=== PATIENT | female | born 1990 | race African-American/Black ===

== ENCOUNTER 2017-02-14 14:55 | Emergency (ER) | payer SELFPAY ==
[~2017-02-14] VITALS: Ht 154.9 cm; Wt 90.0 kg
[2017-02-14 14:56] VITALS: BP 149/67; PULSE 83; RESP 16; TEMP 98.5; O2SAT 97
[2017-02-14] MEDS ORDERED: TRICTAB PO (15:29)
[2017-02-14] MEDS ORDERED: METF500T PO (15:29)
[2017-02-14] MEDS ORDERED: SODIUM CHLOR 0.9% 1000 ML INJ 1,000 ML IV SCH (15:39)
[2017-02-14] MEDS ORDERED: ONDANSETRON HCL 4 MG/2 ML VIAL IVP ONE (15:45)
[2017-02-14] MEDS ORDERED: SODIUM CHLORIDE 0.9% FLUSH 10 ML FLUSH IV FLUSH PRN (15:45)
[2017-02-14 15:50] VITALS: RESP 16; O2SAT 98
[2017-02-14 16:21] LABS: AUTOMATED NEUTROPHIL # 5.8 TH/MM3 (1.8-7.7); BASOPHIL % 0.1 % (0.0-2.0); EOSINOPHIL # 0.1 TH/MM3 (0-0.4); EOSINOPHIL % 0.7 % (0.0-4.0); HEMATOCRIT 35.6 % (35.0-46.0); HEMO FLAGS DIFF FINAL; LYMPH % 18.5 % (9.0-44.0); LYMPHOCYTE # 1.4 TH/MM3 (1.0-4.8); MEAN CELL VOLUME 76.1 FL (80.0-100.0); MEAN CORPUSCULAR HEMOGLOBIN 25.1 PG (27.0-34.0); MONO % 6.2 % (0.0-8.0); NEUT % 74.5 % (16.0-70.0); PLATELET COUNT 268 TH/MM3 (150-450); RED BLOOD COUNT 4.68 MIL/MM3 (4.00-5.30); RED CELL DISTRIBUTION WIDTH 17.1 % (11.6-17.2); WHITE BLOOD COUNT 7.8 TH/MM3 (4.0-11.0)
[2017-02-14 16:27] LABS: BLOOD, URINE NEG (NEG); COMMENT (UR) CULT NOT INDICATED; CULTURE IF INDICATED CULT NOT INDICATED; GLUCOSE,URINE NEG (NEG); KETONE, URINE NEG (NEG); MUCUS URINE FEW /lpf (OCC); NITRITE,URINE NEG (NEG); PH, URINE 7.5 (5.0-8.5); SQUAMOUS EPITHELIAL CELL URINE 16 /hpf (0-5); URINE COLOR YELLOW (YELLW/STRAW)
--- NOTE | 2017-02-14 16:31 | PD ---
HPI Chief Complaint: Abdominal Pain Time Seen by Provider: 15:33 Travel History International Travel<30 days: No Contact w/Intl Traveler<30days: No Traveled to known affect area: No History of Present Illness HPI 26-year-old female complains of headache for about 5 days. She has crampy pain on the right side. She reports that she is 14 weeks . She's had no vaginal bleeding or discharge. She has no urinary complaint. Pt has hx headache. No fever. PFSH Past Medical History ?: LMP: UNKNOWN Social History Tobacco Use: No Allergies-Medications (Allergen,Severity, Reaction): Coded Allergies: No Known Allergies (Unverified , 02/14/17) Reported Meds & Prescriptions Reported Meds & Active Scripts Active Reported ( Vit-Ferrous Fumarate) 27 Mg Iron-1 Mg Tab 1 Tab PO DAILY Metformin (Metformin HCl) 500 Mg Tab 500 Mg PO DAILY With a meal Review of Systems Except as stated in HPI: all other systems reviewed are Neg General / Constitutional: No: Fever Physical Exam Narrative GENERAL: 26 yo F, NAD, WNWD SKIN: Warm and dry. HEAD: Atraumatic. Normocephalic. EYES: Pupils equal and round. No scleral icterus. No injection or drainage. ENT: No nasal bleeding or discharge. Mucous membranes pink and moist. NECK: Trachea midline. No JVD. CARDIOVASCULAR: Regular rate and rhythm. RESPIRATORY: No accessory muscle use. Clear to auscultation. Breath sounds equal bilaterally. GASTROINTESTINAL: Abdomen soft, non-tender, nondistended. Hepatic and splenic margins not palpable. MUSCULOSKELETAL: Extremities without clubbing, cyanosis, or edema. No obvious deformities. NEUROLOGICAL: Awake and alert. No obvious cranial nerve deficits. Motor grossly within normal limits. Five out of 5 muscle strength in the arms and legs. Normal speech. PSYCHIATRIC: Appropriate mood and affect; insight and judgment normal. Data Data Last Documented VS Vital Signs Date Time Temp Pulse Resp B/P (MAP) Pulse Ox O2 Delivery O2 Flow Rate FiO2 02/14/17 15:50 16 98 Room Air 02/14/17 14:56 98.5 83 VS reviewed Orders Orders Beta Hcg (Quant/Titer) (02/14/17 15:39) Complete Blood Count With Diff (02/14/17 15:39) Comprehensive Metabolic Panel (02/14/17 15:39) Lipase (02/14/17 15:39) Urinalysis - C+S If Indicated (02/14/17 15:39) Iv Access Insert/Monitor (02/14/17 15:39) Ecg Monitoring (02/14/17 15:39) Oximetry (02/14/17 15:39) Ondansetron Inj (Zofran Inj) (02/14/17 15:45) Sodium Chlor 0.9% 1000 Ml Inj (Ns 1000 M (02/14/17 15:39) Sodium Chloride 0.9% Flush (Ns Flush) (02/14/17 15:45) Labs Laboratory Tests Test 02/14/17 15:50 02/14/17 15:55 Urine Color YELLOW Urine Turbidity HAZY Urine pH 7.5 Urine Specific Girard 1.015 Urine Protein TRACE mg/dL Urine Glucose (UA) NEG mg/dL Urine Ketones NEG mg/dL Urine Occult Blood NEG Urine Nitrite NEG Urine Bilirubin NEG Urine Urobilinogen LESS THAN 2.0 MG/DL Urine Leukocyte Esterase LARGE Urine WBC 2 /hpf Urine Squamous Epithelial Cells 16 /hpf Urine Amorphous Sediment RARE Urine Mucus FEW /lpf Microscopic Urinalysis Comment CULT NOT INDICATED White Blood Count 7.8 TH/MM3 Red Blood Count 4.68 MIL/MM3 Hemoglobin 11.8 GM/DL Hematocrit 35.6 % Mean Corpuscular Volume 76.1 FL Mean Corpuscular Hemoglobin 25.1 PG Mean Corpuscular Hemoglobin Concent 33.0 % Red Cell Distribution Width 17.1 % Platelet Count 268 TH/MM3 Mean Platelet Volume 7.8 FL Neutrophils (%) (Auto) 74.5 % Lymphocytes (%) (Auto) 18.5 % Monocytes (%) (Auto) 6.2 % Eosinophils (%) (Auto) 0.7 % Basophils (%) (Auto) 0.1 % Neutrophils # (Auto) 5.8 TH/MM3 Lymphocytes # (Auto) 1.4 TH/MM3 Monocytes # (Auto) 0.5 TH/MM3 Eosinophils # (Auto) 0.1 TH/MM3 Basophils # (Auto) 0.0 TH/MM3 CBC Comment DIFF FINAL Differential Comment Blood Urea Nitrogen 4 MG/DL Creatinine 0.51 MG/DL Random Glucose 106 MG/DL Albumin 2.8 GM/DL Calcium Level 9.4 MG/DL Aspartate Amino Transf (AST/SGOT) 12 U/L Alanine Aminotransferase (ALT/SGPT) 18 U/L Sodium Level 136 MEQ/L Potassium Level 3.5 MEQ/L Chloride Level 104 MEQ/L Carbon Dioxide Level 23.1 MEQ/L Anion Gap 9 MEQ/L Estimat Glomerular Filtration Rate 179 ML/MIN Lipase 96 U/L MDM Medical Decision Making Medical Screen Exam Complete: Yes Emergency Medical Condition: Yes Differential Diagnosis Migraine, venous thrombosis, UTI, pancreatitis Narrative Course CBC & BMP Diagram 02/14/17 15:55 Albumin 2.8 L, Calcium Level 9.4, Aspartate Amino Transf (AST/SGOT) 12 L, Alanine Aminotransferase (ALT/SGPT) 18 Transabdominal ultrasound reveals anterior at least 20 weeks Diagnosis Primary Impression: Abdominal pain during intrauterine Additional Impression: Headache Qualified Codes: R51 - Headache Referrals: [facility] 2 days Additional Instructions: You have a choice when it comes to health care, and we are glad that you chose [facility]. Hopefully, we have met your expectations on today's visit. You are welcome to return to [facility] at any time, as we are committed to meeting the health care needs of our community. Med/Other Pt SpecificInfo: No Change to Meds Disposition: 01 DISCHARGE HOME Condition: Geovanni Carty MD Feb 14, 2017 16:31
[2017-02-14 16:32] LABS: ANION GAP 9 MEQ/L (5-15); AST (GOT) 12 U/L (15-37); BICARBONATE 23.1 MEQ/L (21.0-32.0); BLOOD UREA NITROGEN 4 MG/DL (7-18); CHLORIDE 104 MEQ/L (98-107); GLOMERULAR FILTRATION RATE 179 ML/MIN (>89); POTASSIUM 3.5 MEQ/L (3.5-5.1); SODIUM (NA) 136 MEQ/L (136-145)
[2017-02-14 16:33] LABS: ALT (GPT) 18 U/L (10-53)
[2017-02-14 16:49] LABS: ALKALINE PHOSPHATASE 75 U/L (45-117); BETA HCG QUANT 17403 MIU/ML (0-5); TOTAL BILIRUBIN ADULT 0.1 MG/DL (0.2-1.0)
== END 2017-02-14 17:18 | disposition home or self-care (01) ==
LOC: NEPD 14:55
DX: O26.92 Pregnancy related conditions, unspecified, second trimester (principal); R10.9 Unspecified abdominal pain; R51 Headache; Z3A.14 14 weeks gestation of pregnancy
CPT/HCPCS: 80053; 81001; 83690; 84702; 85025; 96361; 96374; 99284; J2405; J7030

== ENCOUNTER 2017-10-26 20:27 | Emergency (ER) | payer MEDICAID ==
[~2017-10-26] VITALS: Ht 165.1 cm; Wt 72.0 kg
[~2017-10-26 20:27] MED LIST: METF500T PO; TRICTAB PO
[2017-10-26 20:46] VITALS: BP 133/83; PULSE 90; RESP 16; TEMP 98.9; O2SAT 100
--- NOTE | 2017-10-27 00:20 | PD ---
HPI . sore throat Chief Complaint: ENT Complaint Time Seen by Provider: 23:08 Travel History International Travel<30 days: No Contact w/Intl Traveler<30days: No Traveled to known affect area: No History of Present Illness HPI pt is a 27 yr old femlae with sore throat and cough for the last few days , took motrin yesterday without releif , her son hd a sore throat and cough recently , pt denies fever no vomit no diarrhea . localized sore tharoat and ear pain bilateral and generalized malaise , felt weak and tired all day yesterday and today PFSH Past Medical History Immunizations Current: Yes Tetanus Vaccination: Unknown Influenza Vaccination: No ?: Unknown LMP: 10/03/17 Social History Alcohol Use: No Tobacco Use: No Substance Use: No Allergies-Medications (Allergen,Severity, Reaction): Coded Allergies: No Known Allergies (Unverified Adverse Reaction, Unknown, 10/26/17) Reported Meds & Prescriptions Reported Meds & Active Scripts Active Reported ( Vit-Ferrous Fumarate) 27 Mg Iron-1 Mg Tab 1 Tab PO DAILY Metformin (Metformin HCl) 500 Mg Tab 500 Mg PO DAILY With a meal Physical Exam Narrative GENERAL: non toxic afebrile SKIN: Warm and dry. HEAD: Atraumatic. Normocephalic. EYES: Pupils equal and round. No scleral icterus. No injection or drainage. ENT: No nasal bleeding or discharge. Mucous membranes pink and moist.TM clear bilateral posterior pharynx normal NECK: Trachea midline. No JVD. CARDIOVASCULAR: Regular rate and rhythm. RESPIRATORY: No accessory muscle use. Clear to auscultation. Breath sounds equal bilaterally. GASTROINTESTINAL: Abdomen soft, non-tender, nondistended. Hepatic and splenic margins not palpable. MUSCULOSKELETAL: Extremities without clubbing, cyanosis, or edema. No obvious deformities. NEUROLOGICAL: Awake and alert. No obvious cranial nerve deficits. Motor grossly within normal limits. Five out of 5 muscle strength in the arms and legs. Normal speech. PSYCHIATRIC: Appropriate mood and affect; insight and judgment normal. Data Data Last Documented VS Vital Signs Date Time Temp Pulse Resp B/P (MAP) Pulse Ox O2 Delivery O2 Flow Rate FiO2 10/26/17 20:46 98.9 90 16 133/83 (100) 100 Orders Orders Group A Rapid Strep Screen (10/26/17 23:39) Strep Culture (Group A) (10/26/17 23:50) Acetaminophen (Tylenol) (10/27/17 00:30) Guaifen-Cod 200-20 Mg/10ml Liq (Robituss (10/27/17 00:30) Diphenhydramine Liq (Benadryl Liq) (10/27/17 00:30) MDM Medical Decision Making Medical Screen Exam Complete: Yes Emergency Medical Condition: Yes Medical Record Reviewed: Yes Differential Diagnosis pt has Viral illness vs bacterial Narrative Course pt feels better strep swab negative symptomatic treatemnt Diagnosis Primary Impression: Acute viral syndrome Patient Instructions: General Instructions, Viral Syndrome (ED) Scripts Guaifenesin-Codeine Liq (Guaiatussin AC Liq) 100-10 Mg/5 Ml Syrp 10 ML PO Q6H Y for cough, #60 ML Prov: Gavin Woo MD 10/27/17 Acetaminophen (Tylenol) 325 Mg Tab 650 MG PO Q6H Y for PAIN SCALE 1 TO 7, #20 TAB 0 Refills Prov: Gavin Woo MD 10/27/17 Disposition: 01 DISCHARGE HOME Condition: Good Gavin Woo MD Oct 27, 2017 00:20
[2017-10-27] MEDS ORDERED: ACETAMINOPHEN 500 MG CPLT PO ONE (00:30)
[2017-10-27] MEDS ORDERED: guaiFENesin/CODEINE SYRUP 200 MG/20 MG/10 ML CUP PO ONE (00:30)
[2017-10-27] MEDS ORDERED: diphenhydrAMINE HCL ELIXIR 12.5 MG/5 ML CUP PO ONE (00:30)
[2017-10-27] MEDS ORDERED: GUAISYP5 PO (01:14)
[2017-10-27] MEDS ORDERED: TYLE325T PO (01:14)
== END 2017-10-27 01:24 | disposition home or self-care (01) ==
LOC: NEPE 20:27
DX: B34.9 Viral infection, unspecified (principal)
CPT/HCPCS: 87081; 87880; 99283